=== PATIENT | male | born 1995 | race Two or more races ===

== ENCOUNTER 2016-11-28 20:17 | Emergency (ER) | payer MEDICAID ==
[2016-11-28 20:31] VITALS: BP 152/87
--- NOTE | 2016-11-28 21:47 | EDM.PDOC ---
[id number] 4d ILLNESS Time Seen by Provider: 11/28/16 21:25 Source of Information: Reports: Patient History Limitations: Reports: No Limitations - History of Present Illness INITIAL COMMENTS - FREE TEXT/NARRATIVE: 21-year-old male who has a small black spot on his right abdomen that has been present for 1-2 months, tonight he thought he should have it looked at to see what it is. He is completely asymptomatic. Onset: Unknown/Unsure - Related Data Allergies Allergy/AdvReac Type Severity Reaction Status Date / Time No Known Allergies Allergy Verified 11/28/16 21:22 Home Meds: Home Meds NK [No Known Home Meds] 07/09/15 [History] Past Medical History - Past Health History Medical/Surgical History: Denies Medical/Surgical History Gastrointestinal History: Reports: Chronic Constipation Genitourinary History: Reports: Other (See Below) Other Genitourinary History: Similiar foreskin issues Musculoskeletal History: Reports: Fracture, Other (See Below) Other Musculoskeletal History: Right knee Fx Psychiatric History: Reports: Depression Social & Family History - Tobacco Use Smoking Status *Q: Never Smoker Second Hand Smoke Exposure: No - Caffeine Use Caffeine Use Comment: seldom - Recreational Drug Use Recreational Drug Use: Yes Recreational Drug Type: Reports: Marijuana/Hashish Recreational Drug Use Frequency: Not Used In Over 6 Months ED ROS GENERAL - Review of Systems Review Of Systems: ROS reveals no pertinent complaints other than HPI. ED EXAM, GENERAL - Physical Exam Exam: See Below Exam Limited By: No Limitations General Appearance: Alert, No Apparent Distress Respiratory/Chest: No Respiratory Distress Skin Exam: Other (On the right lateral abdomen the patient has a small slightly raised dark smooth lesion less than 1 cm x 0.5 cm, asymptomatic and nontender.) Course - Vital Signs Last Recorded V/S: Last Vital Signs Temp 98.1 F 11/28/16 21:14 Pulse 91 11/28/16 21:14 Resp 18 11/28/16 21:14 BP 152/87 H 11/28/16 21:14 Pulse Ox 96 11/28/16 21:14 - Re-Assessments/Exams Free Text/Narrative Re-Assessment/Exam: 11/28/16 21:46 Reassured the patient that this appears to be a benign melanotic lesion of some type, he can have it removed at the clinic if he so desires and can have it rechecked if it's worsening. Departure - Departure Time of Disposition: 21:54 Disposition: Home, Self-Care 01 Condition: Good Clinical Impression: Benign mole Qualifiers: Melanocytic nevus location: trunk Qualified Code(s): D22.5 - Melanocytic nevi of trunk - Discharge Information Referrals: PCP,None [Primary Care Provider] - Forms: ED Department Discharge Care Plan Goals: Recheck the lesion if it's enlarging, becoming symptomatic such as painful or you have other concerns. If it stays the same nothing needs to be done.
== END 2016-11-28 21:54 | disposition home or self-care (01) ==
LOC: JP.ED 20:17
DX: D22.5 Melanocytic nevi of trunk (principal)
CPT/HCPCS: 99284

== ENCOUNTER 2017-08-23 19:22 | Emergency (ER) | payer MEDICAID ==
[2017-08-23 19:44] VITALS: BP 120/68
--- NOTE | 2017-08-23 20:13 | EDM.PDOC ---
ED HPI GENERAL MEDICAL PROBLEM - General Chief Complaint: Skin Complaint Stated Complaint: LUMP Time Seen by Provider: 08/23/17 19:45 Source of Information: Reports: Patient History Limitations: Reports: No Limitations Perineal Area Pain Score (Numeric/FACES): 5 - Related Data Allergies Allergy/AdvReac Type Severity Reaction Status Date / Time No Known Allergies Allergy Verified 08/23/17 19:46 Home Meds: Home Meds NK [No Known Home Meds] 07/09/15 [History] Past Medical History - Past Health History Medical/Surgical History: Denies Medical/Surgical History Gastrointestinal History: Reports: Chronic Constipation Genitourinary History: Reports: Other (See Below) Other Genitourinary History: Similiar foreskin issues Musculoskeletal History: Reports: Fracture, Other (See Below) Other Musculoskeletal History: Right knee Fx Psychiatric History: Reports: Depression Social & Family History - Tobacco Use Smoking Status *Q: Former Smoker Years of Tobacco use: 0 Packs/Tins Daily: 0.2 Used Tobacco, but Quit: Yes Month/Year Tobacco Last Used: October Second Hand Smoke Exposure: No - Caffeine Use Caffeine Use: Reports: Energy Drinks, Soda, Tea Caffeine Use Comment: seldom - Alcohol Use Days Per Week of Alcohol Use: 0 - Recreational Drug Use Recreational Drug Use: No Recreational Drug Type: Reports: Marijuana/Hashish Recreational Drug Use Frequency: Not Used In Over 6 Months ED ROS GENERAL - Review of Systems Review Of Systems: ROS reveals no pertinent complaints other than HPI. ED EXAM, SKIN/RASH Exam: See Below Exam Limited By: No Limitations General Appearance: Alert, WD/WN (Male) Exam: Other (There is a small area to the inferior part of the scrotum actually where it joints the perineum it's about 1 cm in diameter looks like a little tiny area of folliculitis) Course - Vital Signs Last Recorded V/S: Last Vital Signs Temp 36.6 C 08/23/17 19:48 Pulse 91 08/23/17 19:48 Resp 17 08/23/17 19:48 BP 120/68 08/23/17 19:48 Pulse Ox 96 08/23/17 19:48 Departure - Departure Time of Disposition: 20:11 Disposition: Home, Self-Care 01 Condition: Fair Clinical Impression: Folliculitis - Discharge Information Instructions: Folliculitis Referrals: PCP,None [Primary Care Provider] - Forms: ED Department Discharge Additional Instructions: You have a very small abscess to the scrotum which most likely occurred around the root of a hair follicle. Take cephalexin 500 mg 4 times a day for a week. This area may mature and actually drain spontaneously or it might just
== END 2017-08-23 20:20 | disposition home or self-care (01) ==
LOC: JP.ED 19:22
DX: L73.9 Follicular disorder, unspecified (principal); Z87.891 Personal history of nicotine dependence
CPT/HCPCS: 99283

== ENCOUNTER 2021-01-19 07:55 | Emergency (ER) | payer BC, MEDICAID ==
[2021-01-19 08:14] VITALS: BP 146/88; PULSE 92
[2021-01-19] MEDS ORDERED: Sodium Chloride 0.9% 10 ML Syringe FLUSH PRN ×2 (08:19→08:49)
--- NOTE | 2021-01-19 08:22 | EDM.PDOC ---
ED HPI GENERAL MEDICAL PROBLEM - General Chief Complaint: Abdominal Pain Stated Complaint: PAIN ON R SIDE OF ABDOMEN Time Seen by Provider: 01/19/21 08:15 Source of Information: Reports: Patient, RN Notes Reviewed History Limitations: Reports: No Limitations - History of Present Illness INITIAL COMMENTS - FREE TEXT/NARRATIVE: 25-year-old gentleman presents emergency department day complaint of right lower quadrant pain, he states the pain has been ongoing for about 24 hours no nausea vomiting no fevers he has no surgical history, states he had a normal bowel movement yesterday Right Lower Abdomen Pain Score (Numeric/FACES): 5 - Related Data Allergies Allergy/AdvReac Type Severity Reaction Status Date / Time No Known Allergies Allergy Verified 08/23/17 19:46 Home Meds: Home Meds NK [No Known Home Meds] 07/09/15 [History] Past Medical History Gastrointestinal History: Reports: Chronic Constipation Genitourinary History: Reports: Other (See Below) Other Genitourinary History: Similiar foreskin issues Musculoskeletal History: Reports: Fracture, Other (See Below) Other Musculoskeletal History: Right knee Fx Psychiatric History: Reports: Depression Social & Family History - Caffeine Use Caffeine Use: Reports: Soda Caffeine Use Comment: seldom - Recreational Drug Use Recreational Drug Use: No ED ROS GENERAL - Review of Systems Review Of Systems: See Below Constitutional: Denies: Fever, Chills HEENT: Reports: No Symptoms Respiratory: Reports: No Symptoms Cardiovascular: Reports: No Symptoms GI/Abdominal: Reports: Abdominal Pain, Flatus. Denies: Constipation, Diarrhea, Nausea, Vomiting ED EXAM, GI/ABD - Physical Exam Exam: See Below Exam Limited By: No Limitations General Appearance: Alert, WD/WN, No Apparent Distress Respiratory/Chest: No Respiratory Distress, Lungs Clear, Normal Breath Sounds, No Accessory Muscle Use, Chest Non-Tender Cardiovascular: Regular Rate, Rhythm, No Murmur GI/Abdominal Exam: Soft, Tender (Tender right lower quadrant), Other (Obturator, heel tap, psoas sign, negative) Course - Vital Signs Last Recorded V/S: Last Vital Signs Temp 97 F 01/19/21 08:07 Pulse 92 01/19/21 08:07 Resp 16 01/19/21 08:07 BP 146/88 H 01/19/21 08:07 Pulse Ox 99 01/19/21 08:07 - Orders/Labs/Meds Orders: Active Orders 24 hr Category Date Time Status Peripheral IV Care [RC] . DIRECTED Care 01/19/21 08:20 Active Iopamidol [Isovue-300 (61%)] Med 01/19/21 09:00 Active 150 ml IV . DIRECTED Sodium Chloride 0.9% [Normal Saline] 1,000 ml Med 01/19/21 08:30 Active IV ASDIRECTED Sodium Chloride 0.9% [Saline Flush] Med 01/19/21 08:19 Active 10 ml FLUSH ASDIRECTED PRN Sodium Chloride 0.9% [Saline Flush] Med 01/19/21 08:49 Active 10 ml FLUSH ONETIME PRN Peripheral IV Insertion Adult [OM.PC] Urgent Oth 01/19/21 08:19 Ordered Medication Orders Sodium Chloride (Normal Saline) 1,000 mls @ 125 mls/hr IV ASDIRECTED MECCA Last Admin: 01/19/21 09:11 Dose: 125 mls/hr Documented by: ELEN Iopamidol (Iopamidol 612 Mg/Ml 150 Ml Bottle) 150 ml IV . DIRECTED MECCA Last Admin: 01/19/21 09:02 Dose: 150 ml Documented by: MARIE Sodium Chloride (Sodium Chloride 0.9% 10 Ml Syringe) 10 ml FLUSH ASDIRECTED PRN PRN Reason: Keep Vein Open Last Admin: 01/19/21 08:44 Dose: 10 ml Documented by: ELEN Sodium Chloride (Sodium Chloride 0.9% 10 Ml Syringe) 10 ml FLUSH ONETIME PRN PRN Reason: PER RADIOLOGY PROTOCOL Last Admin: 01/19/21 09:02 Dose: 10 ml Documented by: MARIE Labs: Laboratory Tests 01/19/21 01/19/21 01/19/21 Range/Units 08:32 08:32 08:32 WBC 8.8 (4.5-11.0) K/uL RBC 4.99 (4.30-5.90) M/uL Hgb 14.2 (12.0-15.0) g/dL Hct 40.7 (40.0-54.0) % MCV 82 (80-98) fL MCH 29 (27-31) pg MCHC 35 (32-36) % Plt Count 234 (150-400) K/uL Neut % (Auto) 55.9 (36-66) % Lymph % (Auto) 29.9 (24-44) % Hardin % (Auto) 10.2 H (2-6) % Eos % (Auto) 3.7 (2-4) % Baso % (Auto) 0.3 (0-1) % Sodium 137 L (140-148) mmol/L Potassium 4.0 (3.6-5.2) mmol/L Chloride 103 (100-108) mmol/L Carbon Dioxide 27 (21-32) mmol/L Anion Gap 11.0 (5.0-14.0) mmol/L BUN 13 (7-18) mg/dL Creatinine 0.9 (0.8-1.3) mg/dL Est Cr Clr Drug Dosing 133.63 mL/min Estimated GFR (MDRD) > 60 (>60) Glucose 110 H (74-106) mg/dL Lactic Acid 0.7 (0.4-2.0) mmol/L Calcium 8.8 (8.5-10.1) mg/dL Total Bilirubin 0.5 (0.2-1.0) mg/dL AST 27 (15-37) U/L ALT 80 H (12-78) U/L Alkaline Phosphatase 74 (46-116) U/L Total Protein 7.0 (6.4-8.2) g/dL Albumin 3.5 (3.4-5.0) g/dL Globulin 3.5 (2.3-3.5) g/dL Albumin/Globulin Ratio 1.0 L (1.2-2.2) Meds: Medications Generic Name Dose Route Start Last Admin Trade Name Rohanq PRN Reason Stop Dose Admin Sodium Chloride 1,000 mls @ 125 mls/hr 01/19/21 08:30 01/19/21 09:11 Normal Saline IV 125 mls/hr ASDIRECTED MECCA Administration Iopamidol 150 ml 01/19/21 09:00 01/19/21 09:02 Iopamidol 612 Mg/Ml 150 Ml Bottle IV 150 ml . DIRECTED MECCA Administration Sodium Chloride 10 ml 01/19/21 08:19 01/19/21 08:44 Sodium Chloride 0.9% 10 Ml Syringe FLUSH 10 ml ASDIRECTED PRN Administration Keep Vein Open Sodium Chloride 10 ml 01/19/21 08:49 01/19/21 09:02 Sodium Chloride 0.9% 10 Ml Syringe FLUSH 10 ml ONETIME PRN Administration PER RADIOLOGY PROTOCOL Discontinued Medications Generic Name Dose Route Start Last Admin Trade Name Dario PRN Reason Stop Dose Admin Sodium Chloride 85 mls @ 3 mls/sec 01/19/21 08:49 01/19/21 09:02 Normal Saline IV 01/19/21 08:50 3 mls/sec ONETIME ONE Administration Departure - Departure Time of Disposition: 09:43 Disposition: Home, Self-Care 01 Condition: Fair Clinical Impression: Diverticulitis large intestine Qualifiers: Diverticulitis bleeding: without bleeding Diverticulitis complication: without perforation or abscess Qualified Code(s): K57.32 - Diverticulitis of large intestine without perforation or abscess without bleeding - Discharge Information Instructions: Diverticulitis, [id number] Referrals: PCP,None [Primary Care Provider] - Forms: ED Department Discharge Additional Instructions: Take full course of antibiotics, recommend follow-up with primary care to review CAT scan and discussed diverticular disease upon completion of antibiotics, call return to the emergency department worsening of symptoms. Sepsis Event Note (ED) - Focused Exam Vital Signs: Vital Signs Temp Pulse Resp BP Pulse Ox 01/19/21 08:07 97 F 92 16 146/88 H 99 - My Orders Last 24 Hours: My Active Orders 01/19/21 08:19 Sodium Chloride 0.9% [Saline Flush] 10 ml FLUSH ASDIRECTED PRN Peripheral IV Insertion Adult [OM.PC] Urgent 01/19/21 08:20 Peripheral IV Care [RC] . DIRECTED 01/19/21 08:30 Sodium Chloride 0.9% [Normal Saline] 1,000 ml IV ASDIRECTED 01/19/21 08:49 Sodium Chloride 0.9% [Saline Flush] 10 ml FLUSH ONETIME PRN 01/19/21 09:00 Iopamidol [Isovue-300 (61%)] 150 ml IV . DIRECTED - Assessment/Plan Last 24 Hours: My Active Orders 01/19/21 08:19 Sodium Chloride 0.9% [Saline Flush] 10 ml FLUSH ASDIRECTED PRN Peripheral IV Insertion Adult [OM.PC] Urgent 01/19/21 08:20 Peripheral IV Care [RC] . DIRECTED 01/19/21 08:30 Sodium Chloride 0.9% [Normal Saline] 1,000 ml IV ASDIRECTED 01/19/21 08:49 Sodium Chloride 0.9% [Saline Flush] 10 ml FLUSH ONETIME PRN 01/19/21 09:00 Iopamidol [Isovue-300 (61%)] 150 ml IV . DIRECTED Plan: Assessment Acuity = acute Site and laterality = right-sided diverticulitis Etiology = unknown Manifestations = none Location of injury = Home Lab values = CBC, CMP unremarkable CT scan describes diverticulitis above Plan Prescription for Augmentin 875 p.o. twice daily x10 days follow-up primary care review CAT scan at that time This note was dictated using [employer] voice recognition software please call with any questions on syntax or grammar.
[2021-01-19] MEDS ORDERED: Sodium Chloride 0.9% 1,000 ML IV SCH (08:30)
[2021-01-19] MEDS ORDERED: Iopamidol 612 MG/ML 50 ML SDV PO ONE (08:49)
[2021-01-19] MEDS ORDERED: Iopamidol 612 MG/ML 150 ML Bottle IV SCH (09:00)
--- NOTE | 2021-01-19 09:35 | CRLCT ---
For Patients: As a result of the Century Cures Act, medical imaging exams and procedure reports are released immediately into your electronic medical record. You may view this report before your referring provider. If you have questions, please contact your health care provider. HISTORY: Right lower quadrant abdominal pain. TECHNIQUE: Intravenous contrast enhanced CT of the abdomen and pelvis. 150 mL of Isovue-300 intravenous contrast administered. COMPARISON: No prior. FINDINGS: There is no focal liver parenchymal abnormality. No biliary ductal dilatation. Gallbladder nondistended. Spleen size within normal limits. Adrenal glands are normal. No focal pancreatic abnormality. Symmetric nephrograms. No renal mass or hydronephrosis. No obstructive urinary calculus. Urinary bladder is mildly distended. - No small bowel obstruction. The appendix is normal. There is pericolonic inflammatory change along the anterior aspect of the cecum. On image 88 of series 2, the inflammatory changes are associated with a small diverticulum and the appearance is therefore compatible with right-sided diverticulitis. There is no fluid collection or free intraperitoneal air. No left-sided diverticulitis. Small fat containing umbilical hernia. - No abdominal aortic aneurysm. - Small right lower quadrant lymph nodes are likely reactive. - Mild atelectasis within the lungs. - No acute bony abnormality. IMPRESSION: 1. Pericolonic inflammatory changes along the anterior aspect of the cecum where they are associated with a small colonic diverticulum. Appearance is compatible with acute right-sided diverticulitis. No free air or fluid collection. 2. The appendix is normal. 3. Small fat containing umbilical hernia. Dictated by Leon Tom MD @ 01/19/2021 9:34:00 AM Please note that all CT scans at this facility use dose modulation, iterative reconstruction, and/or weight-based dosing when appropriate to reduce radiation dose to as low as reasonably achievable. Dictated by: Leon Tom MD @ 01/19/2021 09:34:06 (Electronically Signed)
== END 2021-01-19 09:52 | disposition home or self-care (01) ==
LOC: JP.ED 07:55
DX: K57.32 Diverticulitis of large intestine without perforation or abscess without bleeding (principal)
CPT/HCPCS: 36415; 74177; 80053; 83605; 85025; 99284; J7030; Q9967